=== PATIENT | male | born 1950 | race Caucasian/White ===

== ENCOUNTER 2019-11-10 21:49 | Emergency (ER) | payer MEDICARE, OTHER ==
[~2019-11-10] VITALS: Ht 170.2 cm; Wt 82.0 kg
[~2019-11-10 21:49] MED LIST: FOLI-17 PO; HYDR-3237 PO; ISON300T10 PO; LISI-167 PO; METF500T17 PO; NAPR220C2 PO; PYRI50TA7 PO; THIA100T67 PO
--- NOTE | 2019-11-10 22:02 | NUR ---
THIS PT WAS BIB [facility] AFTER BYSTANDERS CALLED FOR A WITNESSED FALL WITH THE PT HITTING HIS HEAD. PER EMS, PT ABLE TO WALK FROM LOCATION TO RIG. NO OBVIOUS HEAD INJURIES, SKIN INTACT, UNKNOWN IF PT TAKES A BLOOD THINNER. PT KNOWS WHERE HE IS, STATES HE "DOESN'T WANT TO BE HERE." ERP TO BEDSIDE, EKG COMPLETED. 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 RESPIRATIONS EVEN AND UNLABORED, HOB ELEVATED TO PROTECT AIRWAY. URINAL AND CALL LIGHT WITHIN REACH.
--- NOTE | 2019-11-10 22:27 | NUR ---
PT TO AND FROM IMAGING. CONDITION UNCHANGED. PT REFUSING O2 FOR SATURATION OF 88% WHILE SLEEPING.
--- NOTE | 2019-11-10 23:11 | NUR ---
PT LAYING IN BED, EYES CLOSED, RESPIRATIONS EVEN AND UNLABORED, SNORING HEARD. NO REQUESTS AT THIS TIME, WILL CONTINUE TO MONITOR.
--- NOTE | 2019-11-10 23:11 | NUR ---
PT REMAINS ON ALL MONITORS.
--- NOTE | 2019-11-11 00:07 | NUR ---
PT LAYING IN BED, TALKING WITH THIS RN.
[2019-11-11 00:09] VITALS: BP 110/75
== END 2019-11-11 00:21 | disposition home or self-care (01) ==
LOC: ED 11-11 00:10
DX: F10.120 Alcohol abuse with intoxication, uncomplicated (principal); I44.4 Left anterior fascicular block; R00.0 Tachycardia, unspecified; I11.9 Hypertensive heart disease without heart failure; Z87.891 Personal history of nicotine dependence; Y90.9 Presence of alcohol in blood, level not specified
CPT/HCPCS: 70450; 93005; 99284